=== PATIENT | female | born 1985 | race Caucasian/White ===

== ENCOUNTER 2016-12-19 21:46 | Emergency (ER) | payer BC ==
--- NOTE | ~2016-12-19 | EKG ---
PATIENT: ANTONY TINOCO UNIT #: [id number] Ventricular Rate: 63 BPM Atrial Rate: 63 BPM P-R Interval: 138 ms QRS Duration: 104 ms Q-T Interval: 396 ms QTC Calculation(Bezet): 405 ms P [place]: 24 degrees Calculated R [place]: 5 degrees Calculated T [place]: 24 degrees Diagnosis Line: Normal sinus rhythm Diagnosis Line: Incomplete right bundle branch block Diagnosis Line: Otherwise normal ECG Diagnosis Line: When compared with ECG of 27-AUG-2012 19:31, Diagnosis Line: No significant change was found Diagnosis Line: Confirmed by KRISTEN QUIROGA MD ([id number]) on 12/22/2016 Diagnosis Line: 5:35:44 PM INTERPRETING MD: KIMBER JEONG
[~2016-12-19 21:46] MED LIST: CALCIUM + D 6001 TA1; CARAFATE1 G PO; DIFLUCAN PO; LEVBID; LORTAB 5/500 TA1 TA1 PO; MACROBID100 MG PO; METRONIDAZOLE PO; NORA-BE; PHENERGAN PO; PHENERGAN25 MG PO; PRENATAL1 TA1; PRENATAL1 TA1 PO; PRILOSEC20 M1 PO; PRILOSEC20 MG PO; PROBIOTIC1 EACH PO; PROTONIX PO; SINGULAIR; TRAMADOL HCL50 M1 PO; VICODIN 5/1 TAB 5/50 PO; VISTARIL PO; ZANTAC300 MG PO; ZOFRAN PO; ZOLOFT PO; ZOLOFT100 MG PO; ZOLOFT50 MG PO; ZYRTEC; [UNRECOGNIZED DRUG - REMARK]
[2016-12-19 22:31] LABS: BASOPHIL% 0.6 % (0-2.5); EOSINOPHIL# 0.2 X10e3 (0-0.7); EOSINOPHIL% 2.6 % (0.0-7.0); HEMOGLOBIN 12.6 gm/dL (12.0-16.0); LYMPHOCYTE% 28.9 % (17.0-45.0); MEAN CELL VOLUME 85.1 FL (83-96); MEAN CORPUSCULAR HEMOGLOBIN 28.2 PG (28-34); MEAN CORPUSCULAR HGB CONC 33.2 g/dL (30-36); MEAN PLATELET VOLUME 8.1 FL (6.5-11.5); MONOCYTE# 0.5 X10e3 (0-1.0); MONOCYTE% 6.6 % (3.0-12.0); NEUTROPHIL# 4.3 X10e3 (1.5-7.1); NEUTROPHIL% 61.3 % (40-75); PLATELET COUNT 305 X10e3 (140-420); RED BLOOD COUNT 4.46 X10e (3.90-5.30); RED CELL DISTRIBUTION WIDTH 14.4 % (11.0-15.5)
[2016-12-19 22:33] LABS: DIFF IND NO
[2016-12-19 22:35] LABS: URINE SOURCE CLEAN CATCH
[2016-12-19 22:38] LABS: URINE APPEARANCE CLEAR; URINE BILIRUBIN NEG (NEG); URINE BLOOD NEG (NEG); URINE COLOR YELLOW; URINE GLUCOSE NEG (NORM); URINE KETONE TRACE (NEG); URINE LEUKOCYTE ESTERASE NEG (NEG); URINE NITRATE NEG (NEG); URINE PH 5.5 (5-8); URINE PROTEIN NEG (NEG); URINE SPECIFIC GRAVITY 1.025 (1.003-1.035); URINE UROBILINOGEN 0.2 MG/DL (NORM)
[2016-12-19 22:39] LABS: MICRO INDICATED? NO
[2016-12-19 22:48] LABS: ALBUMIN SERUM 4.2 g/dL (3.5-5.0); ALKALINE PHOSPHATASE 76 U/L (32-92); ALT (SGPT) 25 U/L (10-40); AMYLASE 35 U/L (0-46); AST (SGOT) 26 U/L (10-42); BILIRUBIN,TOTAL 0.4 mg/dL (0.2-2.0); BLOOD UREA NITROGEN 13 mg/dL (9-23); BUN/CREATININE RATIO 16.25; CALCIUM SERUM 9.3 mg/dL (8.4-10.2); CARBON DIOXIDE 26 mmol/L (22-31); CHLORIDE 107 mmol/L (100-111); CREATININE SERUM 0.8 mg/dL (0.6-1.4); GLOM FILT RATE Estimated ABOVE60 mL/min (>60); GLUCOSE FASTING 100 mg/dL (70-110); LIPASE 47 U/L (22-51); POTASSIUM 4.1 mmol/L (3.5-5.1); PROTEIN TOTAL SERUM 7.5 g/dL (6.0-8.3); SODIUM 140 mmol/L (135-145)
[2016-12-19 22:49] LABS: BILIRUBIN, DIRECT <0.1 mg/dL (0.0-0.2); BILIRUBIN,INDIRECT 0.3 mg/dL (0.0-0.9)
[2016-12-19 23:44] LABS: POC - MYOGLOBIN 89.5 ng/mL (0.0-169.0); POC - TROPONIN <0.05 ng/mL (<=0.05)
[2017-01-20] MEDS ORDERED: LEXAPRO PO (12:34)
[2017-01-20] MEDS ORDERED: FLONASE 0.05% N16 G1 (12:34)
[2017-01-20] MEDS ORDERED: VITAMIN D PO (12:35)
[2017-01-20] MEDS ORDERED: OMEPRAZOLE40 M1 PO (12:35)
[2017-01-20] MEDS ORDERED: CALCIUM (12:36)
[2017-01-20] MEDS ORDERED: IBUPROFEN (12:42)
== END 2016-12-20 00:03 | disposition home or self-care (01) ==
LOC: SED 21:46
PROVIDERS: Emergency Medicine
DX: R10.11 Right upper quadrant pain (principal); F41.9 Anxiety disorder, unspecified; Z87.442 Personal history of urinary calculi
CPT/HCPCS: 36415; 80048; 80076; 81003; 82150; 82553; 83690; 83874; 84484; 84703; 85025; 93005; 99284

== ENCOUNTER → 2016-12-21 | Outpatient (CLI) | payer BC ==
[~2016-12-21] MED LIST changes: +CALCIUM; +FLONASE 0.05% N16 G1; +IBUPROFEN; +LEXAPRO PO; +OMEPRAZOLE40 M1 PO; +VITAMIN D PO
--- NOTE | ~2016-12-21 | US6 ---
[facility] A Service of [facility] RADIOLOGY TEXT RESULTS PATIENT: ANTONY TINOCO LOCATION: SG : 84 UNIT #: [id number] AGE: [address]: Adryan Faulkner MD SEX: F ORDER DR: [id number] [address] [address] [id number] O MR#: [id number] Acc #: [id number] NAME: ANTONY TINOCO. : 1985 SEX: F STUDY DATE/TIME: 12/21/2016 15:10 UNIT: SG ROOM: STUDY DESCRIPTION: US Abdominal Limited Attending Physician: Adryan Faulkner M.D. Referring Physician: Adryan Faulkner M.D. Ordering Physician: Adryan Faulkner M.D. Primary Care Physician: Karishma Gomez MEDICAL IMAGING REPORT This report is preliminary unless electronic signature is present. EXAM Right upper quadrant ultrasound, 12/21/2016 HISTORY Right upper quadrant abdominal pain for 5 days. FINDINGS The liver demonstrates an increase in echotexture with attenuation of the ultrasound beam characteristic of fatty infiltration. No cystic or solid mass lesions were seen in the liver. The intra and extrahepatic bile ducts are not dilated. Gallbladder is normal with no evidence of cholelithiasis, wall thickening or pericholecystic fluid. The common duct measures 4 mm. The pancreas is poorly visualized due to overlying bowel gas. The right kidney is normal. IMPRESSION 1. Fatty infiltration of the liver. 2. Normal gallbladder. 3. Poor visualization of the pancreas due to overlying bowel gas. Dictated by... Farrukh Jones M.D. THIS IS AN ELECTRONICALLY VERIFIED REPORT Farrukh Jones M.D. at 12/22/2016 2:16 PM NAPOLEON/batool TD: 12/21/2016 22:11 JOB #: [id number] [facility] A Service [facility] RADIOLOGY TEXT RESULTS PATIENT: ANTONY TINOCO LOCATION: [facility] #: [id number] : 83 UNIT #: [id number] AGE: [address]: Adryan Faulkner MD SEX: F ORDER DR: MEDICAL IMAGING REPORT
== END | disposition home or self-care (01) ==
LOC: SGUS 15:00
DX: R10.11 Right upper quadrant pain (principal); K76.0 Fatty (change of) liver, not elsewhere classified
CPT/HCPCS: 76705

== ENCOUNTER 2017-01-02 13:04 | Emergency (ER) | payer BC ==
--- NOTE | ~2017-01-02 | CR63 ---
[facility]. [facility] A Service of [facility] & [facility] RADIOLOGY TEXT RESULTS PATIENT: ANTONY TINOCO LOCATION: SED : 84 UNIT #: [id number] AGE: [address]: Johnathon Gonzales MD SEX: F ORDER DR: [id number] [place] [id number] E MR#: [id number] Acc #: [id number] NAME: ANTONY TINOCO : 1985 SEX: F STUDY DATE/TIME: 01/02/2017 14:21 UNIT: SED ROOM: STUDY DESCRIPTION: CR Chest 2 View Attending Physician: Johnathon Gonzales M.D. Ordering Physician: Johnathon Gonzales M.D. Primary Care Physician: Sandra Gomez M.D. MEDICAL IMAGING REPORT This report is preliminary unless electronic signature is present. EXAM PA and lateral chest INDICATIONS 31-year-old female with chest pain, dizziness, lightheadedness for 3 hours. Compared with 03/07/2012. FINDINGS The lungs are well expanded and clear. The heart size is normal. The visualized osseous structures are unremarkable. IMPRESSION Negative chest. Dictated by... Henry Juarez M.D. THIS IS AN ELECTRONICALLY VERIFIED REPORT Henry Juarez M.D. at 01/03/2017 8:06 AM ARS/sweta TD: 01/02/2017 18:31 JOB #: [id number] MEDICAL IMAGING REPORT Page 1 of 1
--- NOTE | ~2017-01-02 | CT71 ---
[facility] A Service [facility] RADIOLOGY TEXT RESULTS PATIENT: ANTONY TINOCO LOCATION: SED : 84 UNIT #: [id number] AGE: [address]: Johnathon Gonzales MD SEX: F ORDER DR: [id number] [place] [id number] E MR#: [id number] Acc #: [id number] NAME: ANTONY TINOCO : 1985 SEX: F STUDY DATE/TIME: 01/02/2017 14:25 UNIT: SED ROOM: STUDY DESCRIPTION: CT Head Wo Contrast Attending Physician: Johnathon Gonzales M.D. Ordering Physician: Johnathon Gonzales M.D. Primary Care Physician: Karishma Bai [facility] IMAGING REPORT This report is preliminary unless electronic signature is present. EXAM CT brain without contrast media HISTORY Dizziness for 3 hours, lightheaded with chest pain. TECHNIQUE Transaxial imaging of the brain was performed without contrast media. This CT exam was performed with one or more of the following radiation dose reduction techniques: automatic exposure control, adjustment of mA and/or kV according to patient size, and iterative reconstruction. FINDINGS Ventricular size and configuration is within normal limits. No intra or extraaxial mass lesions, fluid collections or mass effect are seen. No focal areas of low attention or evidence of acute intracranial hemorrhage. Bone windows are reviewed and appear normal. CONCLUSION Normal. Dictated by... Adryan John M.D. THIS IS AN ELECTRONICALLY VERIFIED REPORT Adryan John M.D. at 01/04/2017 3:10 PM LINETTEK/schuyler TD: 01/02/2017 19:10 JOB #: [id number] [facility] A [facility] RADIOLOGY TEXT RESULTS PATIENT: ANTONY TINOCO LOCATION: SED : 84 UNIT #: [id number] AGE: [address]: Johnathon Gonzales MD SEX: F ORDER DR: MEDICAL IMAGING REPORT Page 1 of 1
[~2017-01-02 13:04] MED LIST changes: -CALCIUM; -FLONASE 0.05% N16 G1; -IBUPROFEN; -LEXAPRO PO; -OMEPRAZOLE40 M1 PO; -VITAMIN D PO
[2017-01-02 13:10] LABS: URINE SOURCE CLEAN CATCH
[2017-01-02 13:13] LABS: URINE APPEARANCE CLEAR; URINE BILIRUBIN NEG (NEG); URINE BLOOD NEG (NEG); URINE COLOR YELLOW; URINE GLUCOSE NEG (NORM); URINE KETONE NEG (NEG); URINE LEUKOCYTE ESTERASE NEG (NEG); URINE NITRATE NEG (NEG); URINE PH 6.5 (5-8); URINE PROTEIN NEG (NEG); URINE SPECIFIC GRAVITY <=1.005 (1.003-1.035); URINE UROBILINOGEN 0.2 MG/DL (NORM)
[2017-01-02 13:47] LABS: MICRO INDICATED? NO
[2017-01-02 14:06] LABS: BASOPHIL% 0.4 % (0-2.5); EOSINOPHIL# 0.1 X10e3 (0-0.7); EOSINOPHIL% 0.7 % (0.0-7.0); HEMOGLOBIN 13.5 gm/dL (12.0-16.0); LYMPHOCYTE% 12.9 % (17.0-45.0); MEAN CELL VOLUME 84.2 FL (83-96); MEAN CORPUSCULAR HEMOGLOBIN 27.8 PG (28-34); MEAN PLATELET VOLUME 8.6 FL (6.5-11.5); MONOCYTE# 0.4 X10e3 (0-1.0); MONOCYTE% 4.4 % (3.0-12.0); NEUTROPHIL# 6.6 X10e3 (1.5-7.1); NEUTROPHIL% 81.6 % (40-75); PLATELET COUNT 291 X10e3 (140-420); RED BLOOD COUNT 4.87 X10e (3.90-5.30); RED CELL DISTRIBUTION WIDTH 14.7 % (11.0-15.5); WHITE BLOOD COUNT 8.1 X10e3 (4.0-10.5)
[2017-01-02 14:08] LABS: DIFF IND NO
[2017-01-02 14:26] LABS: ALBUMIN SERUM 4.4 g/dL (3.5-5.0); ALKALINE PHOSPHATASE 61 U/L (32-92); ALT (SGPT) 22 U/L (10-40); AST (SGOT) 21 U/L (10-42); BILIRUBIN, DIRECT 0.1 mg/dL (0.0-0.2); BILIRUBIN,INDIRECT 0.2 mg/dL (0.0-0.9); BILIRUBIN,TOTAL 0.3 mg/dL (0.2-2.0); BLOOD UREA NITROGEN 8 mg/dL (9-23); CARBON DIOXIDE 23 mmol/L (22-31); CHLORIDE 102 mmol/L (100-111); CREATININE SERUM 0.8 mg/dL (0.6-1.4); GLOM FILT RATE Estimated ABOVE60 mL/min (>60); GLUCOSE FASTING 104 mg/dL (70-110); LIPASE 47 U/L (22-51); POTASSIUM 3.7 mmol/L (3.5-5.1); PROTEIN TOTAL SERUM 7.7 g/dL (6.0-8.3); SODIUM 133 mmol/L (135-145)
[2017-01-20] MEDS ORDERED: LEXAPRO PO (12:34)
[2017-01-20] MEDS ORDERED: FLONASE 0.05% N16 G1 (12:34)
[2017-01-20] MEDS ORDERED: OMEPRAZOLE40 M1 PO (12:35)
[2017-01-20] MEDS ORDERED: VITAMIN D PO (12:35)
[2017-01-20] MEDS ORDERED: CALCIUM (12:36)
[2017-01-20] MEDS ORDERED: IBUPROFEN (12:42)
== END 2017-01-02 15:12 | disposition home or self-care (01) ==
LOC: SED 13:04
PROVIDERS: Emergency Medicine
DX: H81.10 Benign paroxysmal vertigo, unspecified ear (principal); F41.9 Anxiety disorder, unspecified; Z98.890 Other specified postprocedural states
CPT/HCPCS: 36415; 70450; 71020; 80048; 80076; 81003; 83690; 84703; 85025; 99284

== ENCOUNTER 2017-01-10 11:23 | Emergency (ER) | payer BC ==
--- NOTE | ~2017-01-10 | EKG ---
PATIENT: ANTONY TINOCO UNIT #: [id number] Ventricular Rate: 67 BPM Atrial Rate: 67 BPM P-R Interval: 124 ms QRS Duration: 102 ms Q-T Interval: 388 ms QTC Calculation(Bezet): 409 ms P [place]: 28 degrees Calculated R [place]: 12 degrees Calculated T [place]: 26 degrees Diagnosis Line: Normal sinus rhythm Diagnosis Line: Normal ECG Diagnosis Line: When compared with ECG of 19-DEC-2016 22:18, Diagnosis Line: No significant change was found Diagnosis Line: Confirmed by KRISTEN QUIROGA MD ([id number]) on 01/11/2017 Diagnosis Line: 9:13:22 PM INTERPRETING MD: KIMBER JEONG
[2017-01-10 11:38] LABS: BASOPHIL% 0.3 % (0-2.5); DIFF IND NO; EOSINOPHIL# 0.1 X10e3 (0-0.7); EOSINOPHIL% 1.2 % (0.0-7.0); HEMATOCRIT 38.5 % (35.0-45.0); HEMOGLOBIN 12.8 gm/dL (12.0-16.0); LYMPHOCYTE# 1.1 X10e3 (1.0-3.5); LYMPHOCYTE% 18.5 % (17.0-45.0); MEAN CELL VOLUME 84.6 FL (83-96); MEAN CORPUSCULAR HGB CONC 33.2 g/dL (30-36); MEAN PLATELET VOLUME 8.5 FL (6.5-11.5); MONOCYTE# 0.3 X10e3 (0-1.0); MONOCYTE% 5.6 % (3.0-12.0); NEUTROPHIL# 4.5 X10e3 (1.5-7.1); NEUTROPHIL% 74.4 % (40-75); PLATELET COUNT 270 X10e3 (140-420); RED BLOOD COUNT 4.55 X10e (3.90-5.30); RED CELL DISTRIBUTION WIDTH 14.6 % (11.0-15.5)
[2017-01-10 11:48] LABS: INR 1.2; PROTHROMBIN TIME (PATIENT) 13.3 SECONDS (9.5-12.4)
[2017-01-10 11:53] LABS: POC - CKMB 1.1 ng/mL (0.0-7.9); POC - MYOGLOBIN 81.4 ng/mL (0.0-169.0); POC - TROPONIN <0.05 ng/mL (<=0.05)
[2017-01-10 11:55] LABS: PARTIAL THROMBOPLASTIN TIME 28.8 SECONDS (25.6-38.1)
[2017-01-10 11:57] LABS: ALBUMIN SERUM 4.5 g/dL (3.5-5.0); BILIRUBIN, DIRECT 0.1 mg/dL (0.0-0.2); BILIRUBIN,INDIRECT 0.4 mg/dL (0.0-0.9); BILIRUBIN,TOTAL 0.5 mg/dL (0.2-2.0); CALCIUM SERUM 9.4 mg/dL (8.4-10.2); CREATININE SERUM 0.9 mg/dL (0.6-1.4); GLOM FILT RATE Estimated 84.7 mL/min (>60); POTASSIUM 3.6 mmol/L (3.5-5.1); PROTEIN TOTAL SERUM 7.5 g/dL (6.0-8.3)
[2017-01-20] MEDS ORDERED: LEXAPRO PO (12:34)
[2017-01-20] MEDS ORDERED: FLONASE 0.05% N16 G1 (12:34)
[2017-01-20] MEDS ORDERED: OMEPRAZOLE40 M1 PO (12:35)
[2017-01-20] MEDS ORDERED: VITAMIN D PO (12:35)
[2017-01-20] MEDS ORDERED: CALCIUM (12:36)
[2017-01-20] MEDS ORDERED: IBUPROFEN (12:42)
== END 2017-01-10 12:30 | disposition home or self-care (01) ==
LOC: SED 11:23
PROVIDERS: Emergency Medicine
DX: R10.13 Epigastric pain (principal)
CPT/HCPCS: 36415; 80048; 80076; 82553; 83690; 83874; 84484; 84703; 85025; 85610; 85730; 93005; 96361; 96374; 99284; J1885

== ENCOUNTER → 2017-01-20 | Outpatient (CLI) | payer BC ==
[~2017-01-20] MED LIST changes: +CALCIUM; +FLONASE 0.05% N16 G1; +IBUPROFEN; +LEXAPRO PO; +OMEPRAZOLE40 M1 PO; +VITAMIN D PO
--- NOTE | ~2017-01-20 | NM22 ---
[facility] A Service of [facility] & [facility] RADIOLOGY TEXT RESULTS PATIENT: ANTONY TINOCO LOCATION: [facility] : 84 UNIT #: [id number] AGE: [address]: Earl Vasquez MD SEX: F ORDER DR: [id number] [facility] [address] [place], [place] [address] [id number] O MR#: [id number] Acc #: [id number] NAME: ANTONY TINOCO : 1985 SEX: F STUDY DATE/TIME: 01/20/2017 11:07 UNIT: [facility] ROOM: STUDY DESCRIPTION: NILA Hepatobiliary W GB Pharm Attending Physician: Earl Vasquez M.D. Referring Physician: Eral Vasquez M.D. Ordering Physician: Earl Vasquez M.D. Primary Care Physician: Karishma Holmancker MEDICAL IMAGING REPORT This report is preliminary unless electronic signature is present EXAM HIDA scan with Kinevac CCK, 01/20/2017. HISTORY Right upper quadrant abdominal pain and epigastric pain with bilateral flank pain, diarrhea, lightheadedness, gastroesophageal reflux disease and nausea. Mid abdominal pain and periumbilical pain after meals. Early satiety, abdominal bloating, gassiness, and belching symptoms began 3 weeks ago. FINDINGS The patient received an intravenous injection of 5.2 mCi of technetium-99m tagged Choletec for hepatobiliary imaging. 1 hour following injection of the radiopharmaceutical, the patient received an intravenous injection of 2.3 mcg of Kinevac. There is homogeneous distribution of the radiotracer throughout the liver. Gallbladder activity was seen by 45 minutes postinjection of the radiopharmaceutical. Following Kinevac injection, the gallbladder ejection fraction was 91.1% (normal is greater than 30%). IMPRESSION Normal HIDA scan with gallbladder ejection fraction of 91.1%. Dictated by... Farrukh Jones M.D. THIS IS AN ELECTRONICALLY VERIFIED REPORT Farrukh Jones M.D. at 01/20/2017 4:42 PM KRT/thoa TD: 01/20/2017 12:38 JOB #: [id number] MEDICAL IMAGING REPORT [facility] A Service of [facility] RADIOLOGY TEXT RESULTS PATIENT: ANTONY TINOCO LOCATION: [facility] : [birth year] UNIT #: [id number] AGE: [address]: Earl Vasquez MD SEX: F ORDER DR: Page 1 of 1 COPY
--- NOTE | ~2017-01-20 | OR ---
Unit #: [id number] #: [id number] Patient: ANTONY TINOCO [id number] [address] [place], [place] [address] [id number] O MR#: [id number] NAME: ANTONY TINOCO ROOM: Date of Procedure: 01/20/2017 Admission Date: 01/20/2017 Surgeon: Earl Vasquez M.D. : 1985 Attending Physician: Earl Vasquez M.D. Referring Physician: Earl Vasquez M.D. Primary Care Physician: Sandra Gomez M.D. OPERATIVE REPORT PRIMARY CARE PHYSICIAN Sandra Gomez M.D. PREOPERATIVE DIAGNOSES Epigastric pain and right upper quadrant abdominal pain. PROCEDURES PERFORMED Upper gastrointestinal endoscopy and biopsy. POSTOPERATIVE DIAGNOSES Mild prepyloric antral gastritis. This in the form of focal erythema in the antral area. Otherwise, examination was normal up to third part of duodenum. RECOMMENDATIONS We will obtain the results of the HIDA scan. The patient will be seen in the office in 6 weeks' time. SEDATION USED MAC. DESCRIPTION OF PROCEDURE Following detailed explanation of the potential risks and complications of an upper endoscopy, namely perforation, bleeding, and complications related to sedation, the patient was brought to GI lab and laid in the left lateral decubitus position. Lubricated tip of the Olympus video upper endoscope was passed through the bite block into the proximal esophagus under direct vision. The entire esophageal mucosa was examined and appeared normal. Z-line was nicely demarcated, there being no esophagitis or hiatus hernia. The scope was then advanced into the gastric cavity and the latter was insufflated. Mucosa of the fundus, body, and antrum was examined, and the patient was noted to have localized prepyloric antral erythema in the form of erythema and erythematous streaks in the antrum. The pylorus was intubated with visualization of the normal duodenal bulb and second and third part of the duodenum. Upon withdrawal and retroflexion, incisura, cardia, and greater curve was examined. A biopsy was obtained from the antrum for CLOtest. The scope was then withdrawn in the distal esophagus. The entire esophageal mucosa was examined all the way up to pharynx. No additional findings were noted. The patient tolerated the procedure without any postprocedure complications. Unit #: [id number] #: [id number] Patient: ANTONY TINOCO Dictated by... Indy Worthy/karey TD: 01/21/2017 03:00 JOB #: [id number] CC: Sandra Gomez M.D. OPERATIVE REPORT Page 1 of 1 X Earl Vasquez MD X PROCEDURE OPERATIVE NOTE
[2017-01-20 09:51] LABS: BASOPHIL% 0.8 % (0-2.5); EOSINOPHIL# 0.1 X10e3 (0-0.7); EOSINOPHIL% 2.5 % (0.0-7.0); HEMATOCRIT 40.3 % (35.0-45.0); HEMOGLOBIN 13.1 gm/dL (12.0-16.0); LYMPHOCYTE# 1.3 X10e3 (1.0-3.5); MEAN CELL VOLUME 84.4 FL (83-96); MEAN CORPUSCULAR HEMOGLOBIN 27.5 PG (28-34); MEAN CORPUSCULAR HGB CONC 32.6 g/dL (30-36); MEAN PLATELET VOLUME 8.3 FL (6.5-11.5); MONOCYTE# 0.3 X10e3 (0-1.0); MONOCYTE% 6.6 % (3.0-12.0); NEUTROPHIL# 3.2 X10e3 (1.5-7.1); NEUTROPHIL% 64.1 % (40-75); PLATELET COUNT 266 X10e3 (140-420); RED BLOOD COUNT 4.78 X10e (3.90-5.30); RED CELL DISTRIBUTION WIDTH 14.6 % (11.0-15.5)
[2017-01-20 09:54] LABS: DIFF IND NO
[2017-01-20 10:19] LABS: ALBUMIN SERUM 4.2 g/dL (3.5-5.0); BILIRUBIN,TOTAL 0.5 mg/dL (0.2-2.0); BUN/CREATININE RATIO 12.5; CALCIUM SERUM 9.2 mg/dL (8.4-10.2); CREATININE SERUM 0.8 mg/dL (0.6-1.4); GLOM FILT RATE Estimated 97.6 mL/min (>60); POTASSIUM 4.2 mmol/L (3.5-5.1); PROTEIN TOTAL SERUM 7.2 g/dL (6.0-8.3)
== END | disposition home or self-care (01) ==
LOC: CNUC 08:55
PROVIDERS: Internal Medicine Gastroenterology
DX: R10.13 Epigastric pain (principal); R10.11 Right upper quadrant pain
CPT/HCPCS: 36415; 78227; 80053; 85025; A9537; J2805

== ENCOUNTER → 2017-01-20 | Day surgery (SDC) | payer BC | END | disposition home or self-care (01) | LOC: COPS 09:20 | DX: K29.70 Gastritis, unspecified, without bleeding (principal); K21.9 Gastro-esophageal reflux disease without esophagitis; F41.9 Anxiety disorder, unspecified; Z87.442 Personal history of urinary calculi; Z79.1 Long term (current) use of non-steroidal anti-inflammatories (NSAID); Z79.899 Other long term (current) drug therapy; Z98.890 Other specified postprocedural states | CPT/HCPCS: 84703; 87077 ==